=== PATIENT | male | born 1965 | race Caucasian/White ===

== ENCOUNTER 2020-04-27 15:17 | Inpatient (IN) | payer MEDICAID ==
[~2020-04-27] VITALS: Ht 180.3 cm; Wt 112.8 kg
[2020-04-27] MEDS: IV NORMAL SALINE 1000ML BAG 1,000 ML IV SCH (16:30)
[2020-04-27] MEDS ORDERED: ONDANSETRON PF 4 MG/2 ML VIAL. IVP PRN (16:30)
[2020-04-27] MEDS: fentaNYL PF VIAL 100 MCG/2 ML VIAL IVP PRN ×2 (16:50→20:09)
[2020-04-27 17:04] LABS: CALCIUM 8.1 mg/dL (8.5-10.1); CREATININE 1.3 mg/dL (0.7-1.3); GFR 57.3; POTASSIUM 4.5 mmol/L (3.5-5.1)
[2020-04-27] MEDS ORDERED: CARV25TA2 PO (18:08)
[2020-04-27 19:00] VITALS: BP 130/84
[2020-04-27 23:00] VITALS: BP 134/80
[2020-04-28 03:00] VITALS: BP 175/90
[2020-04-28] MEDS: fentaNYL PF VIAL 100 MCG/2 ML VIAL IVP PRN ×5 (03:52→20:07)
[2020-04-28] MEDS: IV NORMAL SALINE 1000ML BAG 1,000 ML IV SCH ×3 (03:54→22:49)
[2020-04-28 07:00] VITALS: BP 142/89
[2020-04-28 11:00] VITALS: BP 119/83
--- NOTE | 2020-04-28 11:13 | PDOC2 ---
CONSULT Date of Consult Date of Consult DATE: 04/28/20 TIME: 11:09 History of Present Illness Reason for Visit: The patient is a 54 year old male who was transferred from [facility]. He reports a 4-5 day history of trouble after eating a "vegie burger". He noticed recurrent bouts of mid abdominal pain after eating with associated diarrhea and belching. The problems persisted prompting him to report to the ER. He states his pain is gone, but that's because he hasn't eaten. He is passing gas, but no stool following the initial diarrhea. Past Medical History Past Medical History hypertension Past Surgical History Past Surgical History L wrist and hand surgery Social History No ALCOHOL: none Current Medications Current Medications Current Medications Fentanyl Citrate (Fentanyl 2ml Vial) 50 mcg PRN Q3HRS PRN IVP PAIN Last administered on 04/28/20at 10:22; Start 04/27/20 at 16:30 Ondansetron HCl (Zofran) 4 mg PRN Q4HRS PRN IVP NAUSEA/VOMITING; Start 04/27/20 at 16:30 Sodium Chloride 1,000 ml @ 100 mls/hr Q10H IV Last administered on 04/28/20at 03:54; Start 04/27/20 at 16:30 Active Scripts Active Reported Carvedilol 25 Mg Tablet 25 Mg PO BIDWMEALS Allergies Allergies: Coded Allergies: No Known Drug Allergies (Unverified , 04/27/20) ROS PSYCHOLOGICAL ROS: No: Anxiety, Behavioral Disorder, Concentration difficultie, Decreased libido, Depression, Disorientation, Hallucinations, Hostility, Irritablity, Memory difficulties, Mood Swings, Obsessive thoughts, Physical abuse, Sexual abuse, Sleep disturbances, Suicidal ideation, Other Eyes: No Blurry vision, No Decreased vision, No Double vision, No Dry eyes, No Excessive tearing, No Eye Pain, No Itchy Eyes, No Loss of vision, No Photophobia, No Scotomata, No Uses contacts, No Uses glasses, No Other HEENT: No: Heacaches, Visual Changes, Hearing change, Nasal congestion, Nasal discharge, Oral lesions, Sinus pain, Sore Throat, Epistaxis, Sneezing, Snoring, Tinnitus, Vertigo, Vocal changes, Other ALLERGY AND IMMUNOLOGY: No: Hives, Insect Bite Sensitivity, Itchy/Watery Eyes, Nasal Congestion, Post Nasal Drip, Seasonal Allergies, Other Hematological and Lymphatic: No: Bleeding Problems, Blood Clots, Blood Transfusions, Brusing, Night Sweats, Pallor, Swollen Lymph Nodes, Other ENDOCRINE: No: Breast Changes, Galactorrhea, Hair Pattern Changes, Hot Flashes, Malaise/lethargy, Mood Swings, Palpitations, Polydipsia/polyuria, Skin Changes, Temperature Intolerance, Unexpected Weight Changes, Other Cardiovascular: No Chest Pain, No Palpitations, No Orthopnea, No Paroxysmal Noc. Dyspnea, No Edema, No Lt Headedness, No Other Gastrointestinal: Yes Abdominal Pain, Yes Diarrhea Genitourinary: No Dysuria, No Frequency, No Incontinence, No Hematuria, No Retention, No Discharge, No Urgency, No Pain, No Flank Pain, No Other, No , No , No , No , No , No , No Musculoskeletal: No Gait Disturbance, No Joint Pain, No Joint Stiffness, No Joint Swelling, No Muscle Pain, No Muscular Weakness, No Pain In:, No Swelling In:, No Other Neurological: No Behavorial Changes, No Bowel/Bladder ControlChng, No Confusion, No Dizziness, No Gait Disturbance, No Headaches, No Impaired Coord/balance, No Memory Loss, No Numbness/Tingling, No Seizures, No Speech Problems, No Tremors, No Visual Changes, No Weakness, No Other Physical Exam General: Alert, Oriented X3, Cooperative HEENT: Atraumatic, PERRLA Lungs: Clear to auscultation Heart: Regular rate Abdomen: Soft, No tenderness Extremities: No clubbing, No cyanosis Skin: No rashes Neuro: Normal speech Psych/Mental Status: Mental status NL MUSCULOSKELETAL: No joint tenderness, No deformity Vitals VITALS Vital Signs Date Time Temp Pulse Resp B/P (MAP) Pulse Ox O2 Delivery O2 Flow Rate FiO2 04/28/20 10:22 Room Air 04/28/20 07:00 97.9 79 18 142/89 (106) 94 97.9 Labs Labs Laboratory Tests Test 04/27/20 16:50 Sodium Level 139 mmol/L (136-145) Potassium Level 4.5 mmol/L (3.5-5.1) Chloride Level 104 mmol/L (98-107) Carbon Dioxide Level 28 mmol/L (21-32) Anion Gap 7 (6-14) Blood Urea Nitrogen 17 mg/dL (8-26) Creatinine 1.3 mg/dL (0.7-1.3) Estimated GFR (Cockcroft-Gault) 57.3 Glucose Level 93 mg/dL (70-99) Calcium Level 8.1 mg/dL (8.5-10.1) Laboratory Tests Test 04/27/20 16:50 Sodium Level 139 mmol/L (136-145) Potassium Level 4.5 mmol/L (3.5-5.1) Chloride Level 104 mmol/L (98-107) Carbon Dioxide Level 28 mmol/L (21-32) Anion Gap 7 (6-14) Blood Urea Nitrogen 17 mg/dL (8-26) Creatinine 1.3 mg/dL (0.7-1.3) Estimated GFR (Cockcroft-Gault) 57.3 Glucose Level 93 mg/dL (70-99) Calcium Level 8.1 mg/dL (8.5-10.1) Assessment/Plan Assessment/Plan 54 year old male with abdominal pain, diarrhea. His presentation is more consistent with enteritis/ileus and less likely a mechanical SBO. Will obtain a small bowel series to further evaluate. CONSUELO MORALES MD Apr 28, 2020 11:13
--- NOTE | 2020-04-28 11:15 | HP ---
ADMIT DATE: 04/27/2020 HISTORY OF PRESENT ILLNESS: The patient is a 54-year-old male patient who came to the Emergency Room of [facility] complaining of severe abdominal pain, nausea, vomiting, and diarrhea. The patient's symptoms started about 4 days ago after eating a busy burger. He stated that he developed a sour stomach after that, he started belching and every time he would belch he would have diarrhea. He also has diarrhea any time he vomits. He last vomited the day before arrival to the Emergency Room. He has not been able to eat for the last several days. He saw his primary care physician who gave him probiotics. He states that he does not feel they have been helping. He has not found anything that helps at home. He did try to eat some cream of wheat today, he made his pain significantly worse. He states that the pain feels burning and aching. He has never had anything like this before. He denied any kind of fever. He has diffuse abdominal pain. He has never had surgery on his abdomen. He was extensively investigated, has had lab work and imaging studies, has had a CT scan of the abdomen and pelvis, which basically showed the patient finding concerning for small-bowel obstruction with possible transition point identified and dilated to collapsed bowel loops, descending and sigmoid diverticulosis. The patient had an NG tube placed and was transferred to [facility] to continue on IV fluid, pain management and antiemetic and to consult the surgical team for further evaluation and treatment. PAST MEDICAL HISTORY: Significant for hypertension and previous episode of bowel obstruction that has resolved completely. PAST SURGICAL HISTORY: Significant for fracture of the left wrist, treated with open reduction and internal fixation when he was 17 years old. ALLERGIES: He has no known drug allergies. MEDICATIONS: He is on carvedilol 25 mg twice a day for hypertension. FAMILY HISTORY: Nothing contributory. SOCIAL HISTORY: He is , smokes pipe and does not drink alcohol or use recreational drugs. 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 REVIEW OF SYSTEMS: As per history of present illness. PHYSICAL EXAMINATION: GENERAL: On arrival to the Emergency Room, he looked well and was clearly in no apparent respiratory distress. No pallor, jaundice, cyanosis or thyromegaly. No jugular venous distension. No lower limb edema. VITAL SIGNS: His heart rate was 98, blood pressure was 156/107, temperature was 97.6, respiratory rate was 20, and oxygen saturation was 96%. HEAD, EYES, EARS, NOSE AND THROAT: Showed normocephalic, atraumatic. NECK: Supple. HEART: Showed normal first and second heart sounds. No gallop, rub or murmur. CHEST: Clear to auscultation. No crepitation or rhonchi. ABDOMEN: Distended, soft. There is no guarding or rigidity. No organomegaly. All hernial orifices intact. Bowel sounds normal. NEUROLOGIC: He was awake, alert, responding appropriately. All his cranial nerves are intact. EXTREMITIES: He moves extremities without difficulty. LABORATORY DATA: While in the Emergency Room his lab work showed a white cell count 9200, hemoglobin 17.6, hematocrit 54, MCV 92, and platelet count 254,000. His chemistry showed a serum sodium 140, potassium 4.6, chloride 104, bicarbonate 25, anion gap of 11, BUN 20, creatinine 1.2, estimated GFR was 62 mL per minute. His glucose 104, lactic acid was 1.2, calcium was 8.8. Total bilirubin, AST, ALT, alkaline phosphatase were normal. Total protein was 8.3, albumin was 3.6 and lipase was 128. He actually had CT scan of the abdomen and pelvis, which showed that the lung bases are unremarkable, several subcentimeter hypodensities in the liver, too small to characterize, but most likely represents benign cyst of the gallbladder. Bile duct, pancreas and spleen are unremarkable. Adrenal glands and kidneys are within normal limits, distended stomach containing contrast and ingested food debris, mildly dilated small bowel loops with contrast extending to a transition point in the high mid abdomen. A second possible transition point is located in the left mid abdomen adjacent to the visualized loops of the small bowel. The appendix is normal, mild descending and sigmoid diverticulosis without evidence of diverticulitis, partially distended bladder is unremarkable. No free abdominal air or fluid, no significant abdominal or pelvic adenopathy, left fat containing inguinal canal. Degenerative changes of the right hip joint with the impression that the patient has finding concerning for small-bowel obstruction with possible transition points identified and dilated to collapsed small bowel loops. ASSESSMENT AND PLAN: The patient has had an NG tube placed and its position was confirmed by a KUB and was started on intermittent suction, started on IV fluid, IV pain medication and antiemetic, and was transferred to [facility] for further evaluation to continue initially his conservative treatment and obviously surgical intervention if deemed necessary. MARLENE MATA MD DR: HASMUKH/michael JOB#: [id number] / [id number]
[2020-04-28] MEDS ORDERED: IOHEXOL 300 MG/ML 100ML VIAL. IJ ONE (11:30)
[2020-04-28] MEDS ORDERED: CONTRAST GIVEN. MC PRN (11:45)
--- NOTE | 2020-04-28 14:40 | RAD ---
PROCEDURE: XR ABDOMEN 1V STUDY DATE: 04/28/2020 CLINICAL INDICATION / HISTORY: Small bowel obstruction. TECHNIQUE: Single AP image of the abdomen was obtained. COMPARISON: Abdomen x-ray of the previous day, CT abdomen and pelvis of 04/27/2020 FINDINGS: The oral contrast administered the previous day is mostly in the large bowel, extending all the way to the superior rectum. There is evidence of colonic diverticulosis. No findings of obstruct ion or perforation.. IMPRESSION: No evidence of residual small bowel obstruction. Electronically signed by: Geovanna Meraz MD (04/28/2020 2:37 PM) [facility] [place]
[2020-04-28 15:00] VITALS: BP 149/91
[2020-04-28 19:00] VITALS: BP 162/97
--- NOTE | 2020-04-28 21:23 | NUR ---
Patient's NG tube removed at this time per MD orders and patient tolerated well.
[2020-04-28 23:00] VITALS: BP 159/79
[2020-04-29 03:00] VITALS: BP 161/92
[2020-04-29 07:00] VITALS: BP 162/95
[2020-04-29 07:28] LABS: HEMOGLOBIN 16.3 g/dL (13.0-17.5); RED BLOOD COUNT 5.35 x10^6/uL (4.30-5.70); RED CELL DISTRIBUTION WIDTH 13.4 % (11.5-14.5); WHITE BLOOD COUNT 6.7 x10^3/uL (4.0-11.0)
--- NOTE | 2020-04-29 07:44 | PDOC ---
PROGRESS NOTES Date of Service DATE: 04/29/20 TIME: 07:43 Subjective Subjective doing well, wants to eat and go home Objective Objective Vital Signs Date Time Temp Pulse Resp B/P (MAP) Pulse Ox O2 Delivery O2 Flow Rate FiO2 04/29/20 03:00 98.4 75 18 161/92 (115) 93 Room Air 98.4 Intake and Output 04/29/20 07:00 Intake Total 3000 ml Output Total 1625 ml Balance 1375 ml Intake Oral 0 ml IV Total 3000 ml Output Urine Total 1625 ml Physical Exam Abdomen: Soft, No tenderness Heart: Regular rate Extremities: No clubbing, No cyanosis General: Alert, Oriented X3 Lungs: Clear to auscultation Neuro: Normal speech Psych/Mental Status: Mental status NL Plan Plan of Care Start PO, poss discharge if tolerates diet Comment Review of Relevant I have reviewed the following items bruce (where applicable) has been applied. Labs Laboratory Tests Test 04/27/20 16:50 Sodium Level 139 mmol/L (136-145) Potassium Level 4.5 mmol/L (3.5-5.1) Chloride Level 104 mmol/L (98-107) Carbon Dioxide Level 28 mmol/L (21-32) Anion Gap 7 (6-14) Blood Urea Nitrogen 17 mg/dL (8-26) Creatinine 1.3 mg/dL (0.7-1.3) Estimated GFR (Cockcroft-Gault) 57.3 Glucose Level 93 mg/dL (70-99) Calcium Level 8.1 mg/dL (8.5-10.1) Medications Current Medications Fentanyl Citrate (Fentanyl 2ml Vial) 50 mcg PRN Q3HRS PRN IVP PAIN Last administered on 04/28/20at 20:07; Start 04/27/20 at 16:30 Ondansetron HCl (Zofran) 4 mg PRN Q4HRS PRN IVP NAUSEA/VOMITING; Start 04/27/20 at 16:30 Sodium Chloride 1,000 ml @ 100 mls/hr Q10H IV Last administered on 04/28/20at 2 2:49; Start 04/27/20 at 16:30 Iohexol (Omnipaque 300 Mg/ml) 400 ml 1X ONCE IJ ; Start 04/28/20 at 11:30; Stop 04/28/20 at 11:31; Status DC Info (CONTRAST GIVEN -- Rx MONITORING) 1 each PRN DAILY PRN MC SEE COMMENTS; Start 04/28/20 at 11:45; Stop 04/30/20 at 11:44 Lorazepam (Ativan Inj) 1 mg PRN Q4HRS PRN IVP ANXIETY / AGITATION Last administered on 04/28/20at 21:21; Start 04/28/20 at 20:15 Active Scripts Active Reported Carvedilol 25 Mg Tablet 25 Mg PO BIDWMEALS Vitals/I & O Vital Sign - Last 24 Hours 04/28/20 04/28/20 04/28/20 04/28/20 10:22 11:00 13:43 15:00 Temp 98.3 98.5 98.3 98.5 Pulse 74 71 Resp 18 18 B/P (MAP) 119/83 (95) 149/91 (110) Pulse Ox 92 94 O2 Delivery Room Air Room Air Room Air Room Air 04/28/20 04/28/20 04/28/20 04/28/20 16:11 17:01 19:00 20:00 Temp 98.0 98.0 Pulse 78 Resp 18 B/P (MAP) 162/97 (118) Pulse Ox 92 O2 Delivery Room Air Room Air Room Air Room Air 04/28/20 04/28/20 04/28/20 04/29/20 20:07 20:37 23:00 03:00 Temp 98.5 98.4 98.5 98.4 Pulse 79 75 Resp 16 14 18 18 B/P (MAP) 159/79 (105) 161/92 (115) Pulse Ox 94 94 93 93 O2 Delivery Room Air Room Air Room Air Room Air Intake and Output 04/28/20 04/28/20 04/29/20 15:00 23:00 07:00 Intake Total 3000 ml Output Total 500 ml 450 ml 675 ml Balance -500 ml 2550 ml -675 ml Justifications for Admission Other Justification CONSUELO MORALES MD Apr 29, 2020 07:44
[2020-04-29 08:00] LABS: ALBUMIN/GLOBULIN RATIO 0.8 (1.0-1.7); CALCIUM 8.1 mg/dL (8.5-10.1); CREATININE 1.1 mg/dL (0.7-1.3); GFR 69.5; POTASSIUM 3.7 mmol/L (3.5-5.1); TOTAL BILIRUBIN 0.7 mg/dL (0.2-1.0)
[2020-04-29] MEDS: IV NORMAL SALINE 1000ML BAG 1,000 ML IV SCH (09:17)
--- NOTE | 2020-04-29 10:22 | PN ---
DATE: 04/29/2020 SUBJECTIVE: The patient is sitting at the edge of the bed, in no apparent distress. His NG tube was removed. His KUB showed that there is no evidence of residual small-bowel obstruction, in fact the oral contrast administered the previous days mostly in the large bowel, extending all the way to the superior rectum and there is evidence of colonic diverticulosis, but no finding of obstruction or perforation. PHYSICAL EXAMINATION: GENERAL: When I saw him today, he looked well and was clearly in no apparent respiratory distress. No pallor, jaundice, cyanosis or thyromegaly. No jugular venous distention. No lower limb edema. VITAL SIGNS: His heart rate was 78, blood pressure was 162/95, temperature was 98.4, respiratory rate was 18 and oxygen saturation was 95%. The rest of clinical exam is stable. The patient was seen by the surgical team and the plan was to start him on a clear liquid diet and he is able to be discharged home if he tolerates his diet well without any complications. LABORATORY DATA: His lab work this morning showed that his serum sodium was 139, potassium 3.7, chloride 104, bicarbonate 24, anion gap 11, BUN 13, creatinine 1.1, estimated GFR was 69 mL per minute. His glucose was 66, calcium was 8.1. Total bilirubin, AST, ALT, alkaline phosphatase were normal. Total protein 7, albumin 3. His white cell count was 6700, hemoglobin 16, hematocrit 48, MCV 90 and platelet count 219,000. ASSESSMENT: Acute gastroenteritis and probably ileus that has resolved. PLAN: We will start him on a clear liquid diet and advance as tolerated. If he is doing fine this afternoon, he might be able to be discharged home. MARLENE MATA MD DR: HASMUKH/michael JOB#: [id number] / [id number]
[2020-04-29 11:00] VITALS: BP 165/102
--- NOTE | 2020-04-29 14:34 | NUR ---
pt is discharged home with self care via ambulation via this RN at 1413. pt is in stable condition. pt has all belongings with him. pt received discharge instructions and prescriptions and stated he had no further questions for me.
== END 2020-04-29 14:13 | disposition home or self-care (01) | DRG 392 ==
LOC: 4 NORTH 15:17
PROVIDERS: ADMIT Internal Medicine; ATTEND Internal Medicine
DX: K52.9 Noninfective gastroenteritis and colitis, unspecified (principal); K56.7 Ileus, unspecified; K57.30 Diverticulosis of large intestine without perforation or abscess without bleeding; I10 Essential (primary) hypertension; F17.290 Nicotine dependence, other tobacco product, uncomplicated
CPT/HCPCS: 36415; 74018; 80048; 80053; 85027; J2060; J3010; J7030; G0378